=== PATIENT | female | born 1965 | race Caucasian/White ===

== ENCOUNTER 2019-03-05 15:59 | Emergency (ER) | payer MEDICARE, MEDICAID ==
[~2019-03-05] VITALS: Ht 160 cm; Wt 80.9 kg
[~2019-03-05 15:59] MED LIST: BENA20TA65 PO; IBUP-1542 PO; LAMO100T83 PO; OMEP20CA16 PO; OXYC-281 PO; SERT50TA PO
[2019-03-05 16:02] VITALS: BP 115/85; PULSE 90; RESP 16; Ht 160 cm; Wt 80.9 kg
[2019-03-05] MEDS ORDERED: KETOROLAC 30 MG INJ IM STA (16:53)
[2019-03-05] MEDS ORDERED: LIDOCAINE 1% (MDV) 20 ML INJ SC ONE (18:00)
[2019-03-05] MEDS ORDERED: HYDROCODONE/APAP (10/325) TAB PO ONE (18:00)
== END 2019-03-05 19:35 | disposition home or self-care (01) ==
LOC: FTE 15:59
DX: S62.636A Displaced fracture of distal phalanx of right little finger, initial encounter for closed fracture (principal); F17.210 Nicotine dependence, cigarettes, uncomplicated; W07.XXXA Fall from chair, initial encounter; Y92.9 Unspecified place or not applicable
CPT/HCPCS: 26755; 73130; J1885; 96372